=== PATIENT | male | born 1970 | race Caucasian/White ===

== ENCOUNTER 2024-05-27 22:08 | Emergency (ER) | payer OTHER, SELFPAY ==
[2024-05-27 22:14] VITALS: BP 110/87
[2024-05-27] MEDS: ADACEL 0.5 ML IM (23:40)
--- NOTE | 2024-05-27 23:45 | ED.SKININJ ---
HPI-Injury
<MODESTO Jain - Last Filed: 05/28/24 02:06>
General
Chief Complaint: Skin Surface Trauma
Source: patient and significant other
Time Seen by Provider: 05/27/24 23:11
Nursing documentation reviewed up to this point in time: agreed with
History of Present Illness-Injury
Initial Injury comments:
Patient presents w/ bloody V-shaped laceration on L 5th digit. Injury occurred about 1 hour ago. Pt was helping clean dishes when plate fell & he tried to catch it but it broke. Finger was cut on piece of broken ceramic plate. [facility] was dirty
but in soapy water. Pt says it will stop bleeding but when he bends finger it will bleed again. Reports pain w/ ROM.
Review of Systems
<MODESTO Jain - Last Filed: 05/28/24 02:06>
Review of Systems
Constitutional: Reports no symptoms
EENT: Reports no symptoms
Respiratory: Reports no symptoms
Cardiac: Reports no symptoms
ABD/GI: Reports no symptoms
: Reports no symptoms
Musculoskeletal: Reports no symptoms
Skin: Reports other (laceration )
Phy Exam
<MODESTO Jain - Last Filed: 05/28/24 02:06>
General Physical Exam
General Presentation: moderate distress
Skin Exam
Skin Exam: laceration (approx. 1 inch bloody, V-shaped laceration on ulnar side of L 5th digit. Flap appears well-vascularized. )
Course
<MODESTO Jain - Last Filed: 05/28/24 02:06>
Orders/Labs/Results
Orders:
Orders
05/27/24 23:22
Tetanus/Diphth/Acelpertussis [Adacel] 0.5 ml IM .ONCE ONE
Vital Signs
Initial and Last Documented VS:
Initial Vital Signs
Temp Pulse Resp BP Pulse Ox
98.7 F 74 18 110/87 98
05/27/24 22:14 05/27/24 22:14 05/27/24 22:14 05/27/24 22:14 05/27/24 22:14
Last Documented Vital Signs
Temp Pulse Resp BP Pulse Ox
98.7 F 74 18 110/87 98
05/27/24 22:14 05/27/24 22:14 05/27/24 22:14 05/27/24 22:14 05/27/24 22:14
<Tyler Barrow, - Last Filed: 05/28/24 00:18>
Orders/Labs/Results
Orders:
Orders
05/27/24 23:22
Tetanus/Diphth/Acelpertussis [Adacel] 0.5 ml IM .ONCE ONE
Vital Signs
Initial and Last Documented VS:
Initial Vital Signs
Temp Pulse Resp BP Pulse Ox
98.7 F 74 18 110/87 98
05/27/24 22:14 05/27/24 22:14 05/27/24 22:14 05/27/24 22:14 05/27/24 22:14
Last Documented Vital Signs
Temp Pulse Resp BP Pulse Ox
98.7 F 74 18 110/87 98
05/27/24 22:14 05/27/24 22:14 05/27/24 22:14 05/27/24 22:14 05/27/24 22:14
Procedures
<Tyler Barrow DO - Last Filed: 05/28/24 00:18>
Laceration Closure
Left Posterior Lateral Fifth Finger:
Status of Wound: clean
Size of Wound in cm: 3
Description of Wound Edges: flap-poorly vascularized
Preparation: cleaned with Betadine
Anesthesia: 1% Lidocaine
Revision/Debridement: routine- no revision
Wound exploration: explored to base- no FB
Type of Closure: single layer closure
Skin Closure Material: 5-0 nylon
Number of sutures: 4
<MODESTO Jain - Last Filed: 05/28/24 02:06>
*Critical Care Note
Total Time (30-74mins, 75-104mins- exclusive of procedures): Not Applicable
ED Attending Note
<MODESTO Jain - Last Filed: 05/28/24 02:06>
-
Portions of this chart may have been created with voice recognition software.� Occasional wrong word or��sound alike� substitutions may have occurred due to the inherent limitations of voice recognition software.
<Tyler Barrow DO - Last Filed: 05/28/24 00:18>
ED Attending Note
Patient seen and examined by attending physician: Yes
I performed the substantive portion of visit, reviewed & personally made and approve the management plan that is documented in note by myself or MIAH.: Yes
ED Attending Note:
Pleasant 54-year-old male that presents with superficial laceration to the left fifth digit. He states he was doing dishes and cut his finger on one of the broken dishes. Denies any other injury. Bleeding stopped with direct pressure. No concern
for foreign body according to patient. Patient was seen in conjunction with the PA student. I have reviewed and agree with the history and treatment plan presented. On my independent physical exam, patient is awake, alert, and oriented x3 no
acute distress. There is approximately 3 cm V-shaped superficial laceration to the posterior lateral side of the fifth digit. There is good capillary refill. The flap is poorly vascularized due to the superficiality of it. Tetanus shot updated.
Discharge Plan
Departure
Patient Disposition: Home (Routine Discharge)
Date of Disposition: 05/28/24
Time of Disposition: 00:18
Patient with high blood pressure during this ER visit?: No
Condition: Good
Discharge Problem:
Finger laceration
Instructions: Wound Care (DC), Laceration Repair With Stitches (DC)
Referrals:
Alexey Lucia MD [Family Provider] -
Activity Restrictions/Additional Instructions:
You received an update of your tetanus tonight. please update your records.
Sutures can be removed in 5 to 7 days. Please keep wound clean and dry.
It was a pleasure meeting you and taking part in your care. We hope for your continued healing and wellness.
Please read discharge instructions in their entirety. However, they are for general education and may not describe your exact diagnosis at discharge. Information on your ER visit and medical conditions were discussed with you along with appropriate
follow up information...
If indicated, please take your medications as instructed and indicated on discharge paperwork.
Please schedule a follow up appointment as directed. Call to schedule an appointment
Please return to the emergency department with ANY change in, persisting, or worsening of symptoms. If any of your symptoms do not improve, or persist, or become more severe within 6-12 hours, please return to the emergency department for further
care.
Please return to the emergency department if you develop a headache, neck pain/stiffness, fever greater than 100.4F, chest pain, shortness of breath, persistent nausea, vomiting, slurred speech, difficulty walking, numbness/tingling, weakness, signs
of infection or any other symptoms that are worrisome to you.
If you have any questions or concerns please do not hesitate to call the Hospital at or E-mail me directly at [email or web address]
Interventions
Interventions:
*Risk Screen - Suicide Last Done: 05/27/24 23:02
*General Assessment Last Done: 05/27/24 23:02
*Neglect/Abuse Screening Last Done: 05/27/24 23:02
ED- Fall Risk Assessment Last Done: 05/27/24 23:02
*ED COVID-19 Vaccine History Last Done: 05/27/24 23:02
*Nursing Disposition Last Done: 05/28/24 00:26
ED-Skin Assessment Last Done: 05/27/24 23:02
Discharge Date and Time
Discharge Date/Time: 05/28/24 00:26
Print Language: [id number]
== END 2024-05-28 00:26 | disposition home or self-care (01) ==
LOC: EMR 22:08
PROVIDERS: EMERGENCY PHYSICIAN Student in an Organized Health Care Education/Training Program; FAMILY PHYSICIAN Internal Medicine
DX: S61.217A Laceration without foreign body of left little finger without damage to nail, initial encounter (principal); W45.8XXA Other foreign body or object entering through skin, initial encounter; Z23 Encounter for immunization
CPT/HCPCS: 99282; 12002; 90471; 90715